=== PATIENT | female | born 1965 | race Caucasian/White ===

== ENCOUNTER 2016-05-20 08:15 | Outpatient (CLI) | payer OTHER | END 2016-05-20 08:16 | disposition home or self-care (01) | DX: I10 Essential (primary) hypertension (principal); E11.9 Type 2 diabetes mellitus without complications ==

== ENCOUNTER 2016-06-12 10:10 | Outpatient (CLI) | payer OTHER | END 2016-06-12 10:11 | disposition home or self-care (01) | DX: Z12.31 Encounter for screening mammogram for malignant neoplasm of breast (principal) ==

== ENCOUNTER 2016-07-09 16:47 | Outpatient (CLI) | payer OTHER | END 2016-07-09 16:48 | disposition home or self-care (01) | DX: Z97.5 Presence of (intrauterine) contraceptive device (principal); N83.202 Unspecified ovarian cyst, left side ==

== ENCOUNTER 2017-03-29 10:49 | Outpatient (CLI) | payer OTHER | END 2017-03-29 10:50 | disposition short-term general hospital (02) | LOC: EMS 10:49 | PROVIDERS: ATTEND Surgery | DX: R22.0 Localized swelling, mass and lump, head (principal); R20.2 Paresthesia of skin; R23.2 Flushing | CPT/HCPCS: A0425; A0427 ==

== ENCOUNTER 2017-07-27 08:34 | Outpatient (CLI) | payer OTHER ==
[2017-07-27 12:45] LABS: BASOPHILS # (AUTO) 0.1 10^3/uL (0.0-0.1); EOSINOPHILS # (AUTO) 0.2 10^3/uL (0.0-0.7); EOSINOPHILS % (AUTO) 3.2 %; HGB - HEMOGLOBIN 13.6 g/dL (12.0-16.0); LYMPHOCYTES # (AUTO) 1.1 10^3/uL (1.5-3.5); LYMPHOCYTES % (AUTO) 21.5 %; MEAN CORPUSCULAR HEMOGLOBIN 29.9 pg (27.0-31.0); MEAN CORPUSCULAR HGB CONC 33.5 g/dL (32.0-36.0); MEAN CORPUSCULAR VOLUME 89.2 fL (81.0-99.0); MEAN PLATELET VOLUME 8.8 fL (7.9-10.8); MONOCYTES # (AUTO) 0.4 10^3/uL (0.0-1.0); MONOCYTES % (AUTO) 6.9 %; NEUTROPHILS # (AUTO) 3.6 10^3/uL (1.5-6.6); NEUTROPHILS % (AUTO) 67.4 %; PLT - PLATELET COUNT 169 10^3/uL (130-450); RED BLOOD COUNT 4.55 10^6/uL (4.20-5.40); RED CELL DISTRIBUTION WIDTH 13.8 % (12.0-15.0); WHITE BLOOD COUNT 5.3 x10^3/uL (4.8-10.8)
[2017-07-27 13:03] LABS: ALBUMIN/GLOBULIN RATIO 1.3 (1.0-2.2)
[2017-07-27 13:17] LABS: ALBUMIN 4.3 g/dL (3.2-5.5); ALKALINE PHOSPHATASE 51 IU/L (42-121); ALT ALANINE AMINOTRANSFERASE 67 IU/L (10-60); AST ASPARTATE AMINOTRANSFERASE 58 IU/L (10-42); BILIRUBIN,TOTAL 0.4 mg/dL (0.2-1.0); BUN - BLOOD UREA NITROGEN 13 mg/dL (6-20); CALCIUM 8.8 mg/dL (8.5-10.3); CARBON DIOXIDE - CO2 24 mmol/L (21-32); CHLORIDE 103 mmol/L (101-111); CHOL/HDL RATIO 3.2 (<4.4); CHOLESTEROL 107 mg/dL; CREATININE 0.7 mg/dL (0.4-1.0); GFR - MDRD 89 (>89); GLUCOSE 182 mg/dL (70-100); HDL CHOLESTEROL 33 mg/dL; LDL CHOLESTEROL,CALCULATED 53 mg/dL; LDL/HDL RATIO 1.6 (<4.4); SODIUM 134 mmol/L (135-145); TOTAL PROTEIN 7.8 g/dL (6.7-8.2); VLDL CHOLESTEROL 21 mg/dL
[2017-07-27 13:53] LABS: HB2 TOTAL 14.9 g/dL; HEMOGLOBIN A1C 1.02 g/dL; HEMOGLOBIN A1C % 8.4 % (4.6-6.2)
== END 2017-07-27 08:35 | disposition home or self-care (01) ==
LOC: LAB.WCP 08:34
PROVIDERS: ATTEND Family Medicine
DX: I10 Essential (primary) hypertension (principal); K21.9 Gastro-esophageal reflux disease without esophagitis; E11.9 Type 2 diabetes mellitus without complications
CPT/HCPCS: 36415; 80053; 80061; 82043; 83036; 83721; 84443; 85025

== ENCOUNTER 2017-07-28 15:29 | Outpatient (CLI) | payer OTHER ==
--- NOTE | 2017-07-29 14:55 | Mammography Report ---
DIGITAL SCREENING MAMMOGRAM: 07/28/2017 CLINICAL INDICATION: A 51-year-old with history of late childbearing for screening. COMPARISON: 06/2016, 03/2015, 02/2014, 02/2013, 01/2012, 01/2010. TECHNIQUE: Routine CC and MLO projections were obtained of the breasts. FINDINGS: The breasts demonstrate scattered fibroglandular densities bilaterally. Coarse and punctate, typically benign calcifications are present. In the right lower outer central breast, there is a possible obscured nodule. Further evaluation with spot compression views and possible ultrasound is recommended. No mammographically suspicious findings are appreciated in the left breast. IMPRESSION: INCOMPLETE EXAMINATION. RECOMMENDATION: Additional evaluation of the right breast as above. BIRADS CATEGORY 0 - INCOMPLETE. STANDARD QUALIFYING STATEMENTS: 1. This examination was reviewed with the aid of Computer-Aided Detection (CAD). 2. A negative or benign imaging report should not delay biopsy if clinically suspicious findings are present. Consider surgical consultation if warranted. More than 5% of cancers are not identified by imaging. 3. Dense breasts may obscure an underlying neoplasm. TD: 07/29/2017 14:54
== END 2017-07-28 15:30 | disposition home or self-care (01) ==
LOC: DI.N 15:29
PROVIDERS: ATTEND Family Medicine
DX: Z12.31 Encounter for screening mammogram for malignant neoplasm of breast (principal); R92.8 Other abnormal and inconclusive findings on diagnostic imaging of breast
CPT/HCPCS: 77067

== ENCOUNTER 2017-08-11 08:23 | Outpatient (CLI) | payer OTHER ==
--- NOTE | 2017-08-11 13:21 | Mammography Report ---
DIAGNOSTIC RIGHT MAMMOGRAM: 08/11/2017 CLINICAL INDICATION: Possible nodule on screening. TECHNIQUE: Right true lateral and spot compression views. COMPARISON: 07/28/2017, 06/12/2016, 04/02/2015, 03/06/2014, 03/06/2013, 02/10/2012, 01/16/2010. FINDINGS: The right breast again demonstrates scattered fibroglandular densities. The density in question dissipates evenly on additional compression. No underlying mass lesion or architectural distortion is identified. IMPRESSION: NEGATIVE EXAMINATION. RECOMMENDATION: Routine annual screening unless otherwise clinically indicated. BI-RADS CATEGORY 1 - NEGATIVE. STANDARD QUALIFYING STATEMENTS: 1. This examination was reviewed with the aid of Computer-Aided Detection (CAD). 2. A negative or benign imaging report should not delay biopsy if clinically suspicious findings are present. Consider surgical consultation if warranted. More than 5% of cancers are not identified by imaging. 3. Dense breasts may obscure an underlying neoplasm. TD: 08/11/2017 13:20
== END 2017-08-11 08:24 | disposition home or self-care (01) ==
LOC: DI 08:23
PROVIDERS: ATTEND Family Medicine
DX: N63.10 Unspecified lump in the right breast, unspecified quadrant (principal); R92.8 Other abnormal and inconclusive findings on diagnostic imaging of breast

== ENCOUNTER 2017-11-22 08:53 | Outpatient (CLI) | payer OTHER ==
[2017-11-22 13:22] LABS: ALBUMIN 3.9 g/dL (3.2-5.5); ALBUMIN/GLOBULIN RATIO 1.1 (1.0-2.2); BILIRUBIN,TOTAL 0.8 mg/dL (0.2-1.0); CALCIUM 8.9 mg/dL (8.5-10.3); CREATININE 0.6 mg/dL (0.4-1.0); TOTAL PROTEIN 7.4 g/dL (6.7-8.2)
[2017-11-22 14:00] LABS: HB2 TOTAL 14.2 g/dL; HEMOGLOBIN A1C 0.81 g/dL; HEMOGLOBIN A1C % 7.4 % (4.6-6.2)
== END 2017-11-22 08:54 | disposition home or self-care (01) ==
LOC: LAB.WCP 08:53
PROVIDERS: ATTEND Family Medicine
DX: E11.9 Type 2 diabetes mellitus without complications (principal)
CPT/HCPCS: 36415; 80053; 83036

== ENCOUNTER 2017-12-09 08:24 | Outpatient (CLI) | payer OTHER ==
--- NOTE | 2017-12-09 10:07 | Ultrasound Report ---
Reason: LIVER FUNCTION TESTS, ABNORMAL Procedure Date: 12/09/2017 Accession Number: [id number] / [id number] Procedure: US - Abdomen Complete CPT Code: FULL RESULT: EXAM: ABDOMEN ULTRASOUND EXAM DATE: 12/09/2017 09:21 AM. CLINICAL HISTORY: Abnormal liver function test. COMPARISON: None. TECHNIQUE: Real-time scanning was performed with static images obtained. FINDINGS: Liver: The liver is diffusely echogenic in appearance suggesting fibrofatty infiltration. No suspicious lesions or masses are identified. The liver is mildly enlarged measuring 22.5 cm. Main portal vein flow: Hepatopetal. Gallbladder: Surgically absent. Biliary System: Common bile duct measures 7-8 mm. No intrahepatic or extrahepatic ductal dilatation given postcholecystectomy changes. Pancreas: Visualized portion is unremarkable. Kidneys: Right: 13.0 cm longitudinally. Normal. No contour-deforming mass, stones, or hydronephrosis. Left: 12.1 cm longitudinally. Normal. No contour-deforming mass, stones, or hydronephrosis. Spleen: 14.0 cm. Mildly enlarged. No masses. Aorta and Inferior Vena Cava: Unremarkable. Other: None. IMPRESSION: 1. Mild hepatosplenomegaly and prominent fatty change of the liver. 2. Status post cholecystectomy. No significant biliary dilation suggested. RADIA
== END 2017-12-09 08:25 | disposition home or self-care (01) ==
LOC: DI 08:24
PROVIDERS: ATTEND Family Medicine
DX: R94.5 Abnormal results of liver function studies (principal); Z98.890 Other specified postprocedural states
CPT/HCPCS: 76700

== ENCOUNTER 2018-06-14 08:33 | Outpatient (CLI) | payer BC, OTHER ==
[2018-06-14 16:38] LABS: ALBUMIN 4.2 g/dL (3.2-5.5); ALBUMIN/GLOBULIN RATIO 1.3 (1.0-2.2); BILIRUBIN,TOTAL 0.8 mg/dL (0.2-1.0); CALCIUM 9.2 mg/dL (8.5-10.3); CREATININE 0.5 mg/dL (0.4-1.0); TOTAL PROTEIN 7.4 g/dL (6.7-8.2)
[2018-06-14 19:36] LABS: HB2 TOTAL 14.6 g/dL
[2018-06-14 21:11] LABS: HEMOGLOBIN A1C 1.02 g/dL; HEMOGLOBIN A1C % 8.5 % (4.6-6.2)
[2018-06-15 13:33] LABS: HEPATITIS B SURFACE ANTIGEN NON-REACTIVE (NON-REACTIVE)
[2018-06-15 15:47] LABS: HEPATITIS C ANTIBODY NON-REACTIVE (NON-REACTIVE)
== END 2018-06-14 08:34 | disposition home or self-care (01) ==
LOC: LAB.WCP 08:33
PROVIDERS: ATTEND Family Medicine
DX: E11.9 Type 2 diabetes mellitus without complications (principal); R94.5 Abnormal results of liver function studies
CPT/HCPCS: 36415; 80053; 83036; 86317; 86704; 86803; 87340

== ENCOUNTER 2018-08-17 10:04 | Outpatient (CLI) | payer BC | END 2018-08-17 10:05 | disposition short-term general hospital (02) | LOC: EMS 10:04 | PROVIDERS: ATTEND Surgery | DX: R06.00 Dyspnea, unspecified (principal); R60.9 Edema, unspecified; L50.9 Urticaria, unspecified | CPT/HCPCS: A0425; A0427 ==

== ENCOUNTER 2018-09-09 08:00 | Outpatient (CLI) | payer BC ==
[2018-09-09 12:30] LABS: BASOPHILS % (AUTO) 0.3 %; EOSINOPHILS % (AUTO) 0.1 %; HGB - HEMOGLOBIN 12.8 g/dL (12.0-16.0); LYMPHOCYTES # (AUTO) 1.5 10^3/uL (1.5-3.5); LYMPHOCYTES % (AUTO) 13.1 %; MEAN CORPUSCULAR HEMOGLOBIN 29.3 pg (27.0-31.0); MEAN CORPUSCULAR HGB CONC 33.6 g/dL (32.0-36.0); MEAN CORPUSCULAR VOLUME 87.3 fL (81.0-99.0); MEAN PLATELET VOLUME 8.3 fL (7.9-10.8); MONOCYTES # (AUTO) 0.7 10^3/uL (0.0-1.0); MONOCYTES % (AUTO) 5.9 %; NEUTROPHILS # (AUTO) 9.5 10^3/uL (1.5-6.6); NEUTROPHILS % (AUTO) 80.6 %; PLT - PLATELET COUNT 213 10^3/uL (130-450); RED BLOOD COUNT 4.38 10^6/uL (4.20-5.40); RED CELL DISTRIBUTION WIDTH 13.6 % (12.0-15.0); WHITE BLOOD COUNT 11.7 x10^3/uL (4.8-10.8)
[2018-09-09 12:50] LABS: HB2 TOTAL 13.1 g/dL; HEMOGLOBIN A1C 0.83 g/dL; HEMOGLOBIN A1C % 7.9 % (4.6-6.2)
[2018-09-09 12:57] LABS: ALBUMIN 4.1 g/dL (3.2-5.5); ALBUMIN/GLOBULIN RATIO 1.3 (1.0-2.2); ALKALINE PHOSPHATASE 49 IU/L (42-121); ALT ALANINE AMINOTRANSFERASE 49 IU/L (10-60); AST ASPARTATE AMINOTRANSFERASE 30 IU/L (10-42); BILIRUBIN,TOTAL 0.6 mg/dL (0.2-1.0); BUN - BLOOD UREA NITROGEN 12 mg/dL (6-20); CALCIUM 9.1 mg/dL (8.5-10.3); CARBON DIOXIDE - CO2 21 mmol/L (21-32); CHLORIDE 104 mmol/L (101-111); CHOL/HDL RATIO 3.2 (<4.4); CHOLESTEROL 123 mg/dL; CREATININE 0.6 mg/dL (0.4-1.0); GFR - MDRD 106 (>89); GLUCOSE 217 mg/dL (70-100); HDL CHOLESTEROL 38 mg/dL; LDL CHOLESTEROL,CALCULATED 66 mg/dL; LDL/HDL RATIO 1.7 (<4.4); SODIUM 137 mmol/L (135-145); TOTAL PROTEIN 7.3 g/dL (6.7-8.2); URIC ACID 6.2 mg/dL (2.6-7.2); VLDL CHOLESTEROL 19 mg/dL
[2018-09-09 13:05] LABS: CRP - C-REACTIVE PROTEIN < 1.0 mg/dL (0-1.0)
[2018-09-09 13:22] LABS: RHEUMATOID FACTOR NEGATIVE (Negative)
[2018-09-12 13:26] LABS: ANA SCREEN NEGATIVE (NEGATIVE)
[2018-09-13 18:56] LABS: CYCLIC CITRULL PEPTIDE CCP IGG <16 UNITS
== END 2018-09-09 23:59 | disposition home or self-care (01) ==
LOC: LAB.WCP 08:00
PROVIDERS: ATTEND Family Medicine
DX: E11.9 Type 2 diabetes mellitus without complications (principal); M25.50 Pain in unspecified joint
CPT/HCPCS: 36415; 80053; 80061; 83036; 83721; 84550; 85025; 85651; 86038; 86140; 86161; 86200; 86430

== ENCOUNTER 2018-10-21 12:47 | Outpatient (CLI) | payer BC | END 2018-10-21 12:48 | disposition home or self-care (01) | LOC: RT 12:47 | PROVIDERS: ATTEND Internal Medicine Gastroenterology | DX: K21.9 Gastro-esophageal reflux disease without esophagitis (principal); I10 Essential (primary) hypertension | CPT/HCPCS: 93005 ==

== ENCOUNTER 2018-10-25 09:23 | Day surgery (SDC) | payer BC ==
[2018-10-25] MEDS ORDERED: LACTATED RINGERS 1,000 ML IV ONE (09:47)
[2018-10-25] MEDS ORDERED: ONDANSETRON 4 MG/2 ML VIAL ONE (10:09)
[2018-10-25] MEDS ORDERED: fentaNYL 250 MCG/5 ML VIAL IVP ONE (11:08)
[2018-10-25] MEDS ORDERED: MIDAZOLAM 2 MG/2 ML VIAL IVP ONE (11:08)
[2018-10-25 12:21] VITALS: BP 127/89
== END 2018-10-25 09:24 | disposition home or self-care (01) ==
LOC: SDS 09:23
PROVIDERS: ATTEND Internal Medicine Gastroenterology
PROC: 0DBL8ZZ Excision of Transverse Colon, Via Natural or Artificial Opening Endoscopic (ICD-10-PCS; 2018-10-25)
PROC: 0DBK8ZZ Excision of Ascending Colon, Via Natural or Artificial Opening Endoscopic (ICD-10-PCS; principal; 2018-10-25 10:45)
DX: Z12.11 Encounter for screening for malignant neoplasm of colon (principal); D12.2 Benign neoplasm of ascending colon; D12.3 Benign neoplasm of transverse colon; I10 Essential (primary) hypertension; E11.9 Type 2 diabetes mellitus without complications; Z79.84 Long term (current) use of oral hypoglycemic drugs; K21.9 Gastro-esophageal reflux disease without esophagitis; J45.909 Unspecified asthma, uncomplicated; Z80.0 Family history of malignant neoplasm of digestive organs
CPT/HCPCS: 45380; J3010; J7120

== ENCOUNTER 2019-01-24 08:00 | Outpatient (CLI) | payer BC ==
[2019-01-24 13:31] LABS: CALCIUM 8.9 mg/dL (8.5-10.3); CREATININE 0.6 mg/dL (0.4-1.0)
[2019-01-24 14:09] LABS: HEMOGLOBIN A1C 0.84 g/dL; HEMOGLOBIN A1C % 8.1 % (4.6-6.2)
== END 2019-01-24 23:59 | disposition home or self-care (01) ==
LOC: LAB.WCP 08:00
PROVIDERS: ATTEND Internal Medicine Gastroenterology
DX: E11.9 Type 2 diabetes mellitus without complications (principal); R94.5 Abnormal results of liver function studies
CPT/HCPCS: 36415; 80048; 83036

== ENCOUNTER 2019-05-10 08:35 | Outpatient (CLI) | payer BC, OTHER ==
[2019-05-10 13:06] LABS: HEMOGLOBIN A1C 0.76 g/dL; HEMOGLOBIN A1C % 7.1 % (4.6-6.2)
[2019-05-10 13:10] LABS: ALBUMIN 4.2 g/dL (3.2-5.5); ALBUMIN/GLOBULIN RATIO 1.3 (1.0-2.2); ALKALINE PHOSPHATASE 47 IU/L (42-121); ALT ALANINE AMINOTRANSFERASE 43 IU/L (10-60); AST ASPARTATE AMINOTRANSFERASE 34 IU/L (10-42); BILIRUBIN,TOTAL 0.6 mg/dL (0.2-1.0); BUN - BLOOD UREA NITROGEN 16 mg/dL (6-20); CALCIUM 8.6 mg/dL (8.5-10.3); CARBON DIOXIDE - CO2 24 mmol/L (21-32); CHLORIDE 97 mmol/L (101-111); CHOL/HDL RATIO 3.3 (<4.4); CHOLESTEROL 108 mg/dL; CREATININE 0.6 mg/dL (0.4-1.0); GFR - MDRD 105 (>89); GLUCOSE 167 mg/dL (70-100); HDL CHOLESTEROL 33 mg/dL; LDL CHOLESTEROL,CALCULATED 50 mg/dL; LDL/HDL RATIO 1.5 (<4.4); SODIUM 134 mmol/L (135-145); TOTAL PROTEIN 7.5 g/dL (6.7-8.2); VLDL CHOLESTEROL 25 mg/dL
== END 2019-05-10 23:59 | disposition home or self-care (01) ==
LOC: LAB.WCP 08:35
PROVIDERS: ATTEND Family Medicine
DX: E11.9 Type 2 diabetes mellitus without complications (principal)
CPT/HCPCS: 36415; 80053; 80061; 83036; 83721

== ENCOUNTER 2019-10-16 08:15 | Outpatient (CLI) | payer OTHER ==
[2019-10-16 13:57] LABS: CREATININE,URINE 142.5 mg/dL; MICROALBUM/CREATININE RATIO,UR 3.5 ug/mg (<30.0); MICROALBUMIN,URINE 0.5 mg/dL (0-300.0)
[2019-10-16 14:19] LABS: HB2 TOTAL 13.8 g/dL; HEMOGLOBIN A1C 0.66 g/dL; HEMOGLOBIN A1C % 6.5 % (4.6-6.2)
== END 2019-10-16 23:59 | disposition home or self-care (01) ==
LOC: LAB.WCP 08:15
PROVIDERS: ATTEND Family Medicine
DX: E11.9 Type 2 diabetes mellitus without complications (principal)
CPT/HCPCS: 36415; 80048; 82043; 82570; 83036

== ENCOUNTER 2019-10-20 08:00 | Outpatient (CLI) | payer OTHER ==
[2019-10-20 12:03] LABS: CALCIUM 8.8 mg/dL (8.5-10.3); CREATININE 0.6 mg/dL (0.4-1.0)
== END 2019-10-20 23:59 | disposition home or self-care (01) ==
LOC: LAB.WCP 08:00
PROVIDERS: ATTEND Family Medicine
DX: E11.9 Type 2 diabetes mellitus without complications (principal)
CPT/HCPCS: 36415; 80048

== ENCOUNTER 2019-10-25 11:32 | Outpatient (CLI) | payer OTHER ==
--- NOTE | 2019-11-01 08:33 | Mammography Report ---
Reason: ROUTINE MAMMO Procedure Date: 10/25/2019 Accession Number: [id number] / [id number] Procedure: [facility] - Screening Mammo w/Vincent CPT Code: Final Report FULL RESULT: BILATERAL DIGITAL SCREENING MAMMOGRAM 3D/2D: 10/25/2019 CLINICAL: Routine screening. Comparison is made to exams dated: 07/28/2017 mammogram, 06/12/2016 mammogram, and 08/11/2017 mammogram - [facility]. There are scattered fibroglandular elements in both breasts. No significant masses, calcifications, or other findings are seen in either breast. There has been no significant interval change. IMPRESSION: NEGATIVE There is no mammographic evidence of malignancy. A 1 year screening mammogram is recommended. This exam was interpreted at Station ID: [id number]. NOTE: For mammograms, a report in lay terms will be sent to the patient. Approximately 15% of breast malignancies will not be visualized mammographically. In the management of a palpable breast mass, a negative mammogram must not discourage biopsy of a clinically suspicious lesion. Electronically Signed By: Jessica palacio/latrice:10/31/2019 15:43:09 ACR BI-RADS Category 1: Negative 3341F B -Scattered fibroglandular 1 Mammogram [id number] 1 year screening B
== END 2019-10-25 11:33 | disposition home or self-care (01) ==
LOC: DI.N 11:32
DX: Z12.31 Encounter for screening mammogram for malignant neoplasm of breast (principal)
CPT/HCPCS: 77063; 77067

== ENCOUNTER 2020-01-31 08:00 | Outpatient (CLI) | payer OTHER | END 2020-01-31 23:59 | disposition home or self-care (01) | LOC: LAB.R 08:00 | PROVIDERS: ATTEND Family Medicine | DX: H66.93 Otitis media, unspecified, bilateral (principal); Z20.828 Contact with and (suspected) exposure to other viral communicable diseases ==

== ENCOUNTER 2020-10-18 08:47 | Outpatient (CLI) | payer OTHER ==
[2020-10-18 12:42] LABS: BASOPHILS % (AUTO) 0.6 %; EOSINOPHILS # (AUTO) 0.2 10^3/uL (0.0-0.7); EOSINOPHILS % (AUTO) 3.2 %; HCT - HEMATOCRIT 40.5 % (37.0-47.0); LYMPHOCYTES % (AUTO) 19.8 %; MEAN CORPUSCULAR HGB CONC 32.1 g/dL (32.0-36.0); MEAN CORPUSCULAR VOLUME 90.4 fL (81.0-99.0); MEAN PLATELET VOLUME 10.7 fL (7.9-10.8); MONOCYTES # (AUTO) 0.3 10^3/uL (0.0-1.0); MONOCYTES % (AUTO) 6.8 %; NEUTROPHILS # (AUTO) 3.5 10^3/uL (1.5-6.6); NEUTROPHILS % (AUTO) 69.2 %; PLT - PLATELET COUNT 183 10^3/uL (130-450); RED BLOOD COUNT 4.48 10^6/uL (4.20-5.40); RED CELL DISTRIBUTION WIDTH 14.3 % (12.0-15.0)
[2020-10-18 13:00] LABS: ESTIMATED AVERAGE GLUCOSE 123 mg/dL (70-100); HEMOGLOBIN A1c% 5.9 % (4.27-6.07)
[2020-10-18 13:11] LABS: THYROID STIMULATING HORMONE 1.88 uIU/mL (0.34-5.60)
[2020-10-18 13:22] LABS: ALBUMIN 4.5 g/dL (3.2-5.5); ALBUMIN/GLOBULIN RATIO 1.6 (1.0-2.2); ALKALINE PHOSPHATASE 41 IU/L (42-121); ALT ALANINE AMINOTRANSFERASE 35 IU/L (10-60); AST ASPARTATE AMINOTRANSFERASE 28 IU/L (10-42); BILIRUBIN,TOTAL 0.7 mg/dL (0.2-1.0); BUN - BLOOD UREA NITROGEN 15 mg/dL (6-20); CALCIUM 9.4 mg/dL (8.5-10.3); CARBON DIOXIDE - CO2 28 mmol/L (21-32); CHLORIDE 99 mmol/L (101-111); CHOL/HDL RATIO 2.7 (<4.4); CHOLESTEROL 120 mg/dL; CREATININE 0.6 mg/dL (0.4-1.0); GFR - MDRD 105 (>89); GLUCOSE 129 mg/dL (70-100); HDL CHOLESTEROL 44 mg/dL; LDL CHOLESTEROL,CALCULATED 63 mg/dL; LDL/HDL RATIO 1.4 (<4.4); POTASSIUM 3.8 mmol/L (3.5-5.0); SODIUM 139 mmol/L (135-145); TOTAL PROTEIN 7.4 g/dL (6.7-8.2); TRIGLYCERIDES 63 mg/dL; VLDL CHOLESTEROL 13 mg/dL
[2020-10-18 13:27] LABS: CREATININE,URINE 102.4 mg/dL; MICROALBUMIN,URINE < 0.2 mg/dL (0-300.0)
== END 2020-10-18 23:59 | disposition home or self-care (01) ==
LOC: LAB.WCP 08:47
PROVIDERS: ATTEND Family Medicine
DX: E11.9 Type 2 diabetes mellitus without complications (principal)
CPT/HCPCS: 36415; 80053; 80061; 82043; 82570; 83036; 83721; 84443; 85025

== ENCOUNTER 2020-11-11 13:23 | Outpatient (CLI) | payer OTHER ==
--- NOTE | 2020-11-12 13:57 | Mammography Report ---
BILATERAL DIGITAL SCREENING MAMMOGRAM 3D/2D: 11/11/2020 CLINICAL: Routine screening. Comparison is made to exams dated: 10/25/2019 mammogram, 08/11/2017 mammogram, 07/28/2017 mammogram, 06/12 mammogram, 04/02/2015 mammogram, and 03/06/2014 mammogram - [facility]. Ther e are scattered fibroglandular elements in both breasts. No significant masses, calcifications, or other findings are seen in either breast. There has been no significant interval change. IMPRESSION: NEGATIVE There is no mammographic evidence of malignancy. A 1 year screening mammogram is recommended. This exam was interpreted at Station ID: [id number]. NOTE: For mammograms, a report in lay terms will be sent to the patient. Approximately 15% of breast malignancies will not be visualized mammographically. In the management of a palpable breast mass, a negative mammogram must not discourage biopsy of a clinically suspicious lesion. Electronically Signed By: Russell oh/latrice:11/11/2020 16:27:13 ACR BI-RADS Category 1: Negative 3341F PARENCHYMAL PATTERN: (A) - The breast(s) demonstrate(s) scattered fibroglandular densities. BI-RADS CATEGORY: (1) - 1 RECOMMENDATION: (ANNUAL) - Recommend routine annual screening mammography. [id number] 1 year screening LATERALITY: (B)
== END 2020-11-11 13:24 | disposition home or self-care (01) ==
LOC: DI.N 13:23
DX: Z12.31 Encounter for screening mammogram for malignant neoplasm of breast (principal)

== ENCOUNTER 2022-02-02 15:53 | Outpatient (CLI) | payer OTHER ==
--- NOTE | 2022-02-04 09:32 | Mammography Report ---
BILATERAL DIGITAL SCREENING MAMMOGRAM 3D/2D: 02/02/2022 CLINICAL: Routine screening. Comparison is made to exams dated: 11/11/2020 mammogram, 10/25/2019 mammogram, 08/11/2017 mammogram, 07/28 mammogram, and 06/12/2016 mammogram - [facility]. There are scattered areas of fibroglandular density in both breasts (category b / 25%-50% glandular t issue). No significant masses, calcifications, or other findings are seen in either breast. There has been no significant interval change. IMPRESSION: NEGATIVE There is no mammographic evidence of malignancy. A 1 year screening mammogram is recommended. Based on the Tyrer Cuzick model (a risk assessment model) the patients lifetime risk is 11.7% and he r 10 year risk is 3.4%. According to the ACR, ACS, and NCCN guidelines, an annual breast MRI exam sherwin ng with mammogram is recommended if the patients lifetime risk is 20% or greater. This exam was interpreted at Station ID: [id number]. NOTE: For mammograms, a report in lay terms will be sent to the patient. Approximately 15% of breast malignancies will not be visualized mammographically. In the management of a palpable breast mass, a negative mammogram must not discourage biopsy of a clinically suspicious lesion. Electronically Signed By: Bucky haskins/treyrad:02/03/2022 08:29:34 ACR BI-RADS Category 1: Negative 3341F PARENCHYMAL PATTERN: (A) - The breast(s) demonstrate(s) scattered fibroglandular densities. BI-RADS CATEGORY: (1) - 1 RECOMMENDATION: (ANNUAL) - Recommend routine annual screening mammography. [id number] 1 year screening LATERALITY: (B)
== END 2022-02-02 15:54 | disposition home or self-care (01) ==
LOC: DI.N 15:53
PROVIDERS: ATTEND Nurse Practitioner Family
DX: Z12.31 Encounter for screening mammogram for malignant neoplasm of breast (principal)

== ENCOUNTER 2022-02-12 15:28 | Outpatient (CLI) | payer OTHER ==
[2022-02-12 18:13] LABS: BILIRUBIN,URINE NEGATIVE (NEGATIVE); GLUCOSE, URINE (UA) NEGATIVE (NEGATIVE); KETONES,URINE (UA) TRACE mg/dL (NEGATIVE); LEUKOCYTE ESTERASE, URINE NEGATIVE (NEGATIVE); NITRITE,URINE NEGATIVE (NEGATIVE); OCCULT BLOOD,URINE NEGATIVE (NEGATIVE); PROTEIN,URINE NEGATIVE (NEGATIVE); UROBILINOGEN,URINE 0.2 (NORMAL) E.U./dL (NORMAL)
[2022-02-12 18:15] LABS: CLARITY,URINE CLEAR (CLEAR)
[2022-02-12 18:23] LABS: BACTERIA,URINE Rare /HPF (None Seen); RBC,URINE 0-5 /HPF (0-5); SQUAMOUS EPITHELIAL CELL,UR FEW Squamous (<= Few)
== END 2022-02-12 23:59 | disposition home or self-care (01) ==
LOC: LAB 15:28
PROVIDERS: ATTEND Nurse Practitioner
DX: R35.0 Frequency of micturition (principal); R30.0 Dysuria
CPT/HCPCS: 81001; 87086

== ENCOUNTER 2022-02-17 08:56 | Outpatient (CLI) | payer OTHER ==
[2022-02-17 13:00] LABS: ALBUMIN 4.3 g/dL (3.2-5.5); ALBUMIN/GLOBULIN RATIO 1.4 (1.0-2.2); ALKALINE PHOSPHATASE 50 IU/L (42-121); ALT ALANINE AMINOTRANSFERASE 61 IU/L (10-60); AST ASPARTATE AMINOTRANSFERASE 50 IU/L (10-42); BILIRUBIN,TOTAL 0.8 mg/dL (0.2-1.0); BUN - BLOOD UREA NITROGEN 14 mg/dL (6-20); CARBON DIOXIDE - CO2 23 mmol/L (21-32); CHLORIDE 102 mmol/L (101-111); CHOL/HDL RATIO 3.2 (<4.4); CHOLESTEROL 125 mg/dL; CREATININE 0.7 mg/dL (0.4-1.0); GFR - MDRD 87 (>89); GLUCOSE 171 mg/dL (70-100); HDL CHOLESTEROL 39 mg/dL; LDL CHOLESTEROL,CALCULATED 63 mg/dL; LDL/HDL RATIO 1.6 (<4.4); POTASSIUM 3.6 mmol/L (3.5-5.0); SODIUM 135 mmol/L (135-145); TOTAL PROTEIN 7.3 g/dL (6.7-8.2); TRIGLYCERIDES 113 mg/dL; VLDL CHOLESTEROL 23 mg/dL
[2022-02-17 14:22] LABS: ESTIMATED AVERAGE GLUCOSE 169 mg/dL (70-100); HEMOGLOBIN A1c% 7.5 % (4.27-6.07)
== END 2022-02-17 08:57 | disposition home or self-care (01) ==
LOC: LAB.N 08:56
PROVIDERS: ATTEND Nurse Practitioner Family
DX: D48.9 Neoplasm of uncertain behavior, unspecified (principal); E11.9 Type 2 diabetes mellitus without complications
CPT/HCPCS: 36415; 80053; 80061; 83036; 83721

== ENCOUNTER 2022-08-16 12:08 | Outpatient (CLI) | payer OTHER ==
[2022-08-16 14:17] LABS: ALBUMIN/GLOBULIN RATIO 1.2 (1.0-2.2); BILIRUBIN,TOTAL 0.6 mg/dL (0.2-1.0); CALCIUM 8.9 mg/dL (8.5-10.3); CREATININE 0.6 mg/dL (0.4-1.0); TOTAL PROTEIN 7.3 g/dL (6.7-8.2)
[2022-08-16 21:17] LABS: ESTIMATED AVERAGE GLUCOSE 120 mg/dL (70-100); HEMOGLOBIN A1c% 5.8 % (4.27-6.07)
== END 2022-08-16 12:09 | disposition home or self-care (01) ==
LOC: LAB 12:08
PROVIDERS: ATTEND Nurse Practitioner Family
DX: I10 Essential (primary) hypertension (principal); E11.9 Type 2 diabetes mellitus without complications
CPT/HCPCS: 36415; 80053; 83036

== ENCOUNTER 2023-01-18 12:30 | Outpatient (CLI) | payer OTHER ==
[2023-01-18 13:00] LABS: CREATININE 0.6 mg/dL (0.6-1.3)
[2023-01-18] MEDS ORDERED: iohexoL-300 100 ML VIAL IVP ONE (16:08)
--- NOTE | 2023-01-18 16:32 | CT Report ---
PROCEDURE: CHEST WO INDICATIONS: LUNG NODULE, ADRENAL NODULE TECHNIQUE: Noncontrast 1mm axial images were acquired from the pulmonary apices to the posterior costophrenic an gles. Axial 5 mm soft tissue kernel reconstructions were performed as well as 8 mm axial MIP and cor onal and sagittal 5 mm reformations. For radiation dose reduction, the following was used: automate d exposure control, adjustment of mA and/or kV according to patient size. COMPARISON: None available at time of dictation. FINDINGS: Image quality: Excellent. Lungs and pleura: No consolidation. No pleural effusions. No pneumothorax. 4 mm centrilobular nodule in the right middle lobe (series 3, and 188). Multiple juxtapleural nodules with smooth margins, lar gest measuring 5.5 mm in the right middle lobe (series 3, image 156); location and smooth margins fav or a benign intrapulmonary lymph nodes. Mediastinum: Heart size is normal. No pericardial effusion. No large vessel abnormality. No mediastin al adenopathy by size criteria. Chest wall and lower neck: Thyroid is unremarkable. No axillary or supraclavicular adenopathy by size . Bones: No aggressive osseous abnormality. Upper Abdomen: Please see dedicated chest CT. IMPRESSION: No available comparisons at time of dictation. If one becomes available, an addendum can be made to t his report. 4 mm centrilobular nodules in the right middle lobe. Consider 12 month follow-up if this patient is a t high risk for developing lung cancer, per Fleischner Society guidelines. Additional juxtapleural nodules are present within the lungs, presumably benign intrapulmonary lymph nodes. Reviewed by: Van Bradshaw on 01/18/2023 4:30 PM PDT Approved by: Van Bradshaw on 01/18/2023 4:30 PM PDT Station ID: [id number]
--- NOTE | 2023-01-22 13:45 | CT Report ---
PROCEDURE: ABDOMEN W/WO INDICATIONS: LUNG NODULE, ADRENAL NODULE CONTRAST: 100ml omni 300 TECHNIQUE: 4 phase scanning was performed. After the administration of intravenous contrast, 5 mm thick section s acquired from the diaphragm to the symphysis. 5 mm coronal and sagittal reformats were acquired. For radiation dose reduction, the following was used: automated exposure control, adjustment of mA a nd/or kV according to patient size. COMPARISON: Outside imaging 12/10/2021 FINDINGS: Image quality: Good Lower chest: Separately dictated Solid organs: Hepatic steatosis, seen previously. No hypervascular liver lesion. Cholecystectomy. No pathologic dilation of the biliary system or pancreatic duct. No splenomegaly. Again seen is a 1.4 cm left adrenal nodule with washout values compatible with an adenoma. No hydronephrosis. No solid renal mass. Vessels and lymph nodes: Main portal vein is patent. No pathologic lymph nodes by size criteria. Bowel and peritoneum: No bowel obstruction. No pathologic ascites or abscess. Body wall: Unremarkable Bones: Mild degenerative changes, no acute or suspicious finding. IMPRESSION: Left adrenal nodule is stable with dynamic contrast values compatible with adenoma. Please correlate with laboratory testing to determine functional status. Incidentally noted hepatic steatosis again seen. Chest findings are separately dictated. Reviewed by: Hipolito Nash MD on 01/22/2023 1:43 PM PDT Approved by: Hipolito Nash MD on 01/22/2023 1:43 PM PDT Station ID: [id number]
== END 2023-01-18 12:31 | disposition home or self-care (01) ==
LOC: LAB 12:30
PROVIDERS: ATTEND Nurse Practitioner Family
DX: E27.8 Other specified disorders of adrenal gland (principal); R91.8 Other nonspecific abnormal finding of lung field
CPT/HCPCS: 36415; 71250; 74170; 82565; Q9967

== ENCOUNTER 2023-01-24 09:07 | Outpatient (CLI) | payer OTHER | END 2023-01-24 09:08 | disposition home or self-care (01) | LOC: LAB 09:07 | PROVIDERS: ATTEND Nurse Practitioner Family | DX: Z53.9 Procedure and treatment not carried out, unspecified reason (principal) ==

== ENCOUNTER 2023-01-25 07:57 | Outpatient (CLI) | payer OTHER ==
[2023-01-25 13:25] LABS: ALBUMIN 4.3 g/dL (3.2-5.5); ALBUMIN/GLOBULIN RATIO 1.7 (1.0-2.2); ALKALINE PHOSPHATASE 48 IU/L (42-121); ALT ALANINE AMINOTRANSFERASE 44 IU/L (10-60); AST ASPARTATE AMINOTRANSFERASE 31 IU/L (10-42); BILIRUBIN,TOTAL 0.5 mg/dL (0.2-1.0); BUN - BLOOD UREA NITROGEN 13 mg/dL (6-20); CALCIUM 9.4 mg/dL (8.5-10.3); CARBON DIOXIDE - CO2 29 mmol/L (21-32); CHLORIDE 102 mmol/L (101-111); CHOL/HDL RATIO 2.8 (<4.4); CHOLESTEROL 110 mg/dL; CREATININE 0.6 mg/dL (0.6-1.3); GFR - MDRD 104 (>89); GLUCOSE 113 mg/dL (74-104); HDL CHOLESTEROL 39 mg/dL; LDL CHOLESTEROL,CALCULATED 44 mg/dL; LDL/HDL RATIO 1.1 (<4.4); SODIUM 138 mmol/L (135-145); TOTAL PROTEIN 6.9 g/dL (6.4-8.9); TRIGLYCERIDES 136 mg/dL (48-352); VLDL CHOLESTEROL 27 mg/dL
[2023-01-25 13:38] LABS: THYROID STIMULATING HORMONE 3.76 uIU/mL (0.34-5.60)
[2023-01-25 13:41] LABS: ESTIMATED AVERAGE GLUCOSE 120 mg/dL (70-100); HEMOGLOBIN A1c% 5.8 % (4.27-6.07)
== END 2023-01-25 07:58 | disposition home or self-care (01) ==
LOC: LAB.N 07:57
PROVIDERS: ATTEND Nurse Practitioner Family
DX: I10 Essential (primary) hypertension (principal); E11.9 Type 2 diabetes mellitus without complications; E66.9 Obesity, unspecified
CPT/HCPCS: 36415; 80053; 80061; 83036; 83721; 84443